=== PATIENT | female | born 1970 | race Caucasian/White ===

== ENCOUNTER → 2016-12-15 | Outpatient (CLI) | payer OTHER ==
[~2016-12-15] MED LIST: ALPRAZOLAM PO; BIRTH CONTROL PILL PO; FLEXERIL10 MG PO; NEURONTIN PO; PRILOSEC40 MG PO; PROAIR HFA8.5 GM IH; PROPRANOLOL HCL40 MG PO; VALTREX500 MG PO; ZOLOFT50 MG PO; ZYRTEC PO
--- NOTE | ~2016-12-15 | CT17 ---
[facility] A Service of [facility] & [facility] RADIOLOGY TEXT RESULTS PATIENT: YAZAN MARTINEZ LOCATION: [facility] : 72 UNIT #: [id number] AGE: [address]: KATIUSKA LOPEZ APRN SEX: F ORDER DR: [id number] [facility] [address] [place], [place] [address] [id number] O MR#: [id number] Acc #: [id number] NAME: YAZAN MARTINEZ : 1970 SEX: F STUDY DATE/TIME: 12/15/2016 9:25 UNIT: [facility] ROOM: STUDY DESCRIPTION: CT Angio Head Attending Physician: Katiuska Lopez Aprn Referring Physician: Katiuska Lopez Aprn Ordering Physician: Katiuska Lopez Aprn Primary Care Physician: Juan Pablo Quintana M.D. MEDICAL IMAGING REPORT This report is preliminary unless electronic signature is present EXAM Head and neck CT angiogram, 12/15/2016 PROCEDURE Axial contrast enhanced head and neck CT angiogram with 3-dimensional reformats. This CT exam was performed with one or more of the following radiation dose reduction techniques: automatic exposure control, adjustment of mA and/or kV according to patient size, and iterative reconstruction. COMPARISON Head CT 12/15/2016 HISTORY Chronic migraine headaches, known cerebral venous angioma and cavernous malformation, small calvarial lesion. History of melanoma. FINDINGS There is a normal arch branching pattern without proximal stenosis in the cervical common and internal and external carotid and vertebral arteries are normal. There is slight motion of the carotid bifurcations, but no evidence to suggest plaque or stenosis. The assessment of the bifurcations is limited by motion. Intracranially, there is symmetric vascularity in the anterior middle and posterior cerebral distributions. There is no evidence of intracranial aneurysm or intracranial flow-limiting stenosis or any region or zone of hypoperfusion. The known periventricular/right venous angioma is redemonstrated, and no suspicious vascular lesion or evidence of a rapid draining vein or other abnormality is seen. The dural venous sinuses are normal. Tiny lucency in the right frontal calvarium is redemonstrated. It has a benign appearance. It is somewhat unusual that it was not present on the STS. [facility] A Service of [facility] & [facility] RADIOLOGY TEXT RESULTS PATIENT: YAZAN MARTINEZ [id number] : [birth year] UNIT #: [id number] AGE: [address]: KATIUSKA LOPEZ APRN SEX: F ORDER DR: MR of 11/01/2012, and was present at 11/24/2016, but still has a characteristically benign appearance and a benign etiology is strongly favored. There is no suspicious cervical adenopathy. The lung apices are normal and where there is some spinal degenerative change, there are no other bony lucencies. IMPRESSION Negative head and neck CT angiogram. No evidence of intra or extracranial aneurysm or stenosis. No mass or abnormal enhancement. Small right frontal bone lesion has a benign appearance on CT. 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 It was not present at the time of the MR or not at least enhancing at the time of the MR of 11/01/2012, and was easily seen on 11/24/2016, which is mildly unusual, but its appearance is so characteristically benign that a benign etiology is still favored. Given the patient's history of melanoma, it may be prudent to obtain some form of follow up imaging, though there are no other bony lesions in the visualized portion of the skeleton. Dictated by... Guillermo Woo M.D. THIS IS AN ELECTRONICALLY VERIFIED REPORT Guillermo Woo M.D. at 12/18/2016 5:03 PM TEV/to TD: 12/18/2016 12:52 JOB #: [id number] MEDICAL IMAGING REPORT COPY
--- NOTE | ~2016-12-15 | CT71 ---
[facility] A Service of [facility] RADIOLOGY TEXT RESULTS PATIENT: YAZAN MARTINEZ LOCATION: [facility] : 72 UNIT #: [id number] AGE: [address]: KATIUSKA LOPEZ APRN SEX: F ORDER DR: [id number] [facility] [address] [place], [place] [address] [id number] O MR#: [id number] Acc #: [id number] NAME: YAZAN MARTINEZ : 1970 SEX: F STUDY DATE/TIME: 12/15/2016 9:21 UNIT: [facility] ROOM: STUDY DESCRIPTION: CT Head Wo Contrast Attending Physician: Katiuska Lopez Aprn Referring Physician: Katiuska Lopez Aprn Ordering Physician: Katiuska Lopez Aprn Primary Care Physician: Juan Pablo Quintana M.D. MEDICAL IMAGING REPORT This report is preliminary unless electronic signature is present EXAM Head CT no contrast. DATE OF STUDY 12/15/2016 PROCEDURE Axial unenhanced head CT. This CT exam was performed with one or more of the following radiation dose reduction techniques: automatic exposure control, adjustment of mA and/or kV according to patient size, and iterative reconstruction. COMPARISON Brain MRI 11/24/2016. HISTORY Headache, migraine type for 10 years or more. History of melanoma and family history of brain tumor. FINDINGS There is no acute intracranial hemorrhage or mass, hydrocephalus, or extraaxial fluid collection. Changes from the known venous angioma and probable associated cavernoma along the lateral margin of the right lateral ventricle are seen similar to what was seen on the MR. No evidence of acute hemorrhage, mass, or hydrocephalus or extraaxial fluid collection. The extracranial soft tissues are normal and the skull base and calvaria are normal. IMPRESSION Changes from a known venous angioma and associated presumed cavernoma on [facility] A Service of [facility] RADIOLOGY TEXT RESULTS PATIENT: YAZAN MARTINEZ LOCATION: [facility] : 72 UNIT #: [id number] AGE: [address]: KATIUSKA LOPEZ APRN SEX: F ORDER DR: the right. No change since brain MR of 11/24/2016. No acute abnormality. Dictated by... Guillermo Woo M.D. THIS IS AN ELECTRONICALLY VERIFIED REPORT Guillermo Woo M.D. at 12/18/2016 5:06 PM TEV/deirdre TD: 12/15/2016 13:49 JOB #: [id number] MEDICAL IMAGING REPORT COPY
[2016-12-15 09:31] LABS: POC - CREATININE 0.94 mg/dL (0.44-1.03); POC - GFR >60.0 mL/min (>60)
== END | disposition home or self-care (01) ==
LOC: CCAT 08:24
PROVIDERS: Nurse Practitioner Family
DX: D18.02 Hemangioma of intracranial structures (principal); R90.89 Other abnormal findings on diagnostic imaging of central nervous system; Z85.820 Personal history of malignant melanoma of skin
CPT/HCPCS: 70450; 70496; 70498; 82565; Q9967